=== PATIENT | male | born 1955 | race Caucasian/White ===

== ENCOUNTER 2023-10-18 07:21 | Day surgery (SDC) | payer MEDICARE, SELFPAY ==
--- NOTE | 2023-10-17 13:57 | WPDANESEPPF ---
Anes - Initial Pre Proc Eval Procedure: Operation Date: 10/18/23 09:30 Proposed Procedures p Screening Colonoscopy - Curtis Bolden MD Date/Time: 10/17/23 13:57 Surgeon: Curtis Bolden MD Pre Op Diagnosis: History of colon polyps, family hx of colon polyps Patient Data Age: 68 Gender: M Height: 1.7 m Weight: 81.7 kg Allergies Allergy/AdvReac Type Severity Reaction Status Date / Time No Known Allergies Allergy Verified 10/02/23 10:12 Home Medications Medication Instructions Recorded Confirmed Type alprazolam 0.25 mg tablet 0.25 mg PO TID PRN anxiety #90 tabs 06/20/23 10/18/23 Rx zolpidem 12.5 mg tablet,extended 12.5 mg PO QHS #90 tabs 07/04/23 10/18/23 Rx release,multiphase (Ambien CR) atorvastatin 20 mg tablet See Rx Instructions .Route 07/13/23 10/18/23 Rx .COMPLEX #90 tabs tramadol 50 mg tablet 50 mg PO Q6H PRN pain #120 tabs 09/18/23 10/18/23 Rx Nexium 1 tab-cap PO DIRECTED 10/02/23 10/18/23 History carbidopa 10 mg-levodopa 100 mg See Rx Instructions .Route 10/02/23 10/18/23 Rx tablet .COMPLEX #90 tabs Patient hx anesthesia problems: none Family hx anesthesia problems: none Results Review: All pre-operative results and documents have been reviewed as part of the pre-operative evaluation. [facility] Past Medical History Medical History (Updated 10/18/23 @ 09:27 by Lenny Weber DO) Anxiety Arthritis Dyslipidemia Impaired fasting blood sugar Insomnia Kidney donor RLS (restless legs syndrome) Surgical History Surgical History History of cholecystectomy History of splenectomy Family History Family History Mother Lung cancer Grandparent Diabetes mellitus Social History Social History Years smoked: 30 Smoking status: Current every day smoker Tobacco type: cigarettes Second hand tobacco smoke exposure: Yes Alcohol intake: current Substance use: never Substance use type: does not use Lack of Transportation: No Lack of Food: Never True Current Housing: I Have Housing Concerned About Future Housing: No Difficulty Paying Gas/Electric Bills: No Difficulty Paying for Meds: No Currently Unemployed: No Difficulty w/ Childcare or Family Care: No Living arrangements: with family Occupation/Education: retired Gender identity (if verbalized by the patient): Male Sexual Orientation (if Verbalized by the Patient): Straight or Heterosexual Anes - Eval Final PreProcedure Day of Procedure 10/17/23 13:57 Patient weight: overweight Heart: regular rate and rhythm Lungs: clear to auscultation Airway: Mallampati scale class II Neurological: alert and oriented Last oral intake: >/= 8 hours ASA classification: II Emergent: no Anesthetic plan: proceed Anesthesia type and monitoring: general GIVS and standard monitoring Results Review: All pre-operative results and documents have been reviewed as part of the pre-operative evaluation. Informed Consent: The patient's anesthetic plan and its attendant risks and benefits were discussed with the patient/family/POA. Questions were solicited and answers provided to the satisfaction of the patient/family/POA.
[2023-10-18 08:27] VITALS: BP 136/76; PULSE 82; RESP 18; TEMP 36.7; O2SAT 99; BMI 28.2
[2023-10-18] MEDS: LACTATED RINGERS 1,000 ML 150 ML IV CONT (08:37)
--- NOTE | 2023-10-18 08:40 | PM.HPGS ---
History of Present Illness History of Present Illness Consent: Risks, benefits, and alternatives have been discussed and questions answered. Patient agrees to proceed with procedure. Chief complaint: History of colon polyps, family hx of colon polyps Narrative: Aravind Sainz is a 68 year old male presents for screening colonoscopy. Patient's current weight appetite and bowel movements are normal. Patient is 15 years ago had a colonoscopy was several colon polyps. His brother has had colon polyps on multiple occasions. Patient returns today for screening colonoscopy. Review of Systems Review of Systems: All systems reviewed & are unremarkable except as noted in HPI and below PMFSH Past Medical History Medical History Anxiety Arthritis Dyslipidemia Impaired fasting blood sugar Insomnia Kidney donor RLS (restless legs syndrome) Surgical History Surgical History History of cholecystectomy History of splenectomy Family History Family History Mother Lung cancer Grandparent Diabetes mellitus Social History Social History Years smoked: 30 Smoking status: Current every day smoker Tobacco type: cigarettes Second hand tobacco smoke exposure: Yes Alcohol intake: current Substance use: never Substance use type: does not use Lack of Transportation: No Lack of Food: Never True Current Housing: I Have Housing Concerned About Future Housing: No Difficulty Paying Gas/Electric Bills: No Difficulty Paying for Meds: No Currently Unemployed: No Difficulty w/ Childcare or Family Care: No Living arrangements: with family Occupation/Education: retired Gender identity (if verbalized by the patient): Male Sexual Orientation (if Verbalized by the Patient): Straight or Heterosexual Meds Home Medications and Allergies Home Medications Medication Instructions Recorded Confirmed Type alprazolam 0.25 mg tablet 0.25 mg PO TID PRN anxiety #90 tabs 06/20/23 10/18/23 Rx zolpidem 12.5 mg tablet,extended 12.5 mg PO QHS #90 tabs 07/04/23 10/18/23 Rx release,multiphase (Ambien CR) atorvastatin 20 mg tablet See Rx Instructions .Route 07/13/23 10/18/23 Rx .COMPLEX #90 tabs tramadol 50 mg tablet 50 mg PO Q6H PRN pain #120 tabs 09/18/23 10/18/23 Rx Nexium 1 tab-cap PO DIRECTED 10/02/23 10/18/23 History carbidopa 10 mg-levodopa 100 mg See Rx Instructions .Route 10/02/23 10/18/23 Rx tablet .COMPLEX #90 tabs Allergies Allergy/AdvReac Type Severity Reaction Status Date / Time No Known Allergies Allergy Verified 10/02/23 10:12 Vital Signs Vital Signs - 24 hr 10/18/23 08:27 Temperature 98.0 F Pulse Rate 82 Respiratory Rate 18 Blood Pressure 136/76 Pulse Oximetry 99 Oxygen Delivery Room Air Exam Narrative: Physical exam reveals patient to be alert. Vital signs stable. H ENT exam is unremarkable. Patient is anicteric. Lungs are clear to auscultation and murmur or extra sounds. Abdomen bowel sounds are present soft nontender with no organomegaly. Digital external rectal exam is normal. Assessment and Plan Assessment and plan (1) History of colon polyps: Code(s): Z86.010 - Personal history of colonic polyps Status: Acute Assessment and Plan: The patient has a prior history of colon polyps. Plan for surveillance colonoscopy now and at intervals in the future. (2) Family history of colonic polyps: Code(s): Z83.719 - Family history of colon polyps, unspecified Status: Acute Assessment and Plan: Patient's brother has a history of colon polyps. Suggest patient have follow-up colonoscopy at 5 year intervals.
[2023-10-18 09:53] VITALS: BP 121/81; PULSE 86; RESP 16; O2SAT 99
[2023-10-18 10:03] VITALS: BP 124/76; PULSE 86; RESP 18; O2SAT 98
[2023-10-18 10:13] VITALS: BP 123/76; PULSE 82; RESP 18; O2SAT 99
--- NOTE | 2023-10-18 12:55 | WPDANESPN ---
Anes - Prog Note Post-Op Date/Time: 10/18/23 12:55 Cardiovascular status: normal Respiratory status: normal Airway patency: baseline Mental status: baseline Post-Op hydration status: normal Vital Signs: Last Vital Signs Temp 36.7 C 10/18/23 08:27 Pulse 82 10/18/23 10:13 Resp 18 10/18/23 10:13 BP 123/76 10/18/23 10:13 Pulse Ox 99 10/18/23 10:13 O2 Del Method Room Air 10/18/23 10:13 Pain Score (VAS): 0 I/O: Intake & Output 10/17/23 10/18/23 10/18/23 23:59 07:59 15:59 Intake Total 800 Balance 800 Post-procedural complaints: none Patient Feedback: Patient satisfied with anesthetic care. Other Findings: Patient vital signs back to baseline. Patient denies nausea and vomiting. Patient's pain under control. Patient OK for discharge.
== END 2023-10-18 10:32 | disposition home or self-care (01) ==
PROVIDERS: PCP Physician Assistant Medical; Visit Provider Internal Medicine Gastroenterology
PROC: 0DJD8ZZ Inspection of Lower Intestinal Tract, Via Natural or Artificial Opening Endoscopic (ICD-10-PCS; CPT 45378; principal; 2023-10-18 09:30)
DX: Z86.010 Personal history of colon polyps (principal); K57.30 Diverticulosis of large intestine without perforation or abscess without bleeding; K64.8 Other hemorrhoids
CPT/HCPCS: 45378

== ENCOUNTER 2025-01-28 10:54 | Outpatient (CLI) | payer MEDICARE, SELFPAY ==
[2025-01-28 11:15] LABS: Hematocrit 39.0 % (42.0-52.0); Hemoglobin 13.2 g/dL (14.0-18.0); Mean Corpuscular HGB Conc 33.8 g/dl (32-36); Mean Corpuscular Hemoglobin 31.5 pg (26-34); Mean Corpuscular Volume 93.1 fl (80-100); Platelet Count Result 426 k/mm3 (150-375); Red Blood Count 4.19 M/mm3 (4.6-6.20); White Blood Count 9.0 K/mm3 (4.5-10.0)
[2025-01-28 11:38] LABS: Iron 77 ug/dL (49-181)
[2025-01-28 11:48] LABS: Percent Iron Saturation 23 % (20-50)
[2025-01-28 12:19] LABS: Ferritin 28.10 ng/mL (11.1-264)
--- OUTSIDE RECORDS SUMMARY | 2025-01-28 12:46 | XMS_ITS | Clinical Summary ---
Author Organization [facility] Address [address] [place] [address] Care Team Providers Care Fitting Room Supervisor Name Role Phone Unavailable Primary Care Provider Unavailabl e Social History Tobacco Use Types Packs/Day Years Used Date Smoking Tobacco: Never Assessed Sex and Gender Information Value Date Recorded Sex Assigned at Not on file Legal Sex Male 7:51 AM CDT Gender Identity Not on file Sexual Orientation Not on file Plan of Treatment Health Maintenance Due Date Last Done Comments Colorectal Cancer Screening Colonoscopy (10 Years) 1955 Hepatitis C 1973 DTaP, Tdap and Td Vaccines ( 1 - Tdap) 1974 Pneumococcal Vaccine: 50+ Ye ars (1 of 1 - PCV) 2005 Zoster Vaccines (1 of 2) 2005 COVID-19 Vaccine (1 - 2023-2 5 season) 2025 RSV Immunization or 60+ Years (1 - 1-dose 75+ series) 2030 Meningococcal B Vaccine Aged Out No l onger eligible based on patient's age to complete this topic Meningococcal Vaccine Aged Out No connor dinorah eligible based on patient's age to complete this topic RSV Immunizations Under 20 Months Aged Out No longer eligible based on patient's age to complete this topic
== END 2025-01-28 10:55 | disposition home or self-care (01) ==
PROVIDERS: PCP Physician Assistant Medical; Visit Provider Nurse Practitioner
DX: D64.9 Anemia, unspecified (principal)
CPT/HCPCS: 36415; 82728; 83540; 83550; 85027

== ENCOUNTER 2025-03-06 00:20 | Day surgery (SDC) | payer MEDICARE, SELFPAY ==
[2025-02-26 10:58] VITALS: BMI 26.7
--- OUTSIDE RECORDS SUMMARY | 2025-03-06 00:23 | XMS_ITS | Clinical Summary ---
Author Organization [facility] Address [address] [place] [address] Care Team Providers Care Cook Vegetable Name Role Phone Unavailable Primary Care Provider [...] Vaccines (1 of 2) 2005 COVID-19 Vaccine ( - 2023-2 5 season) 2025 Influenza Adult (#1) 2025 RSV Immunization or 60+ Years (1 [...]
[2025-03-06 13:03] VITALS: BP 151/84; PULSE 116; RESP 16; TEMP 36.4; O2SAT 100
[2025-03-06] MEDS: LACTATED RINGERS 1,000 ML 150 ML IV CONT (13:10)
--- NOTE | 2025-03-06 13:34 | WPDANESEPPF ---
Anes - Initial Pre Proc Eval Procedure: Operation Date: 03/06/25 14:30 Proposed Procedures p EGD & Diagnostic Colonoscopy - Rocco Suarez MD Date/Time: 03/06/25 13:34 Surgeon: Rocco Suarez MD Pre Op Diagnosis: GERD, anemia, other fecal abnormalities Patient Data Age: 69 Gender: M Height: 1.7 m Weight: 78.5 kg Last Vital Signs Temp 97.6 F 03/06/25 13:03 Pulse 116 H 03/06/25 13:03 Resp 16 03/06/25 13:03 BP 151/84 H 03/06/25 13:03 Pulse Ox 100 03/06/25 13:03 O2 Del Method Room Air 03/06/25 13:03 Allergies Allergy/AdvReac Type Severity Reaction Status Date / Time No Known Allergies Allergy Verified 03/06/25 13:02 Home Medications ?Medication ?Instructions ?Recorded ?Confirmed ?Type Nexium 1 tab-cap PO DIRECTED 10/02/23 03/06/25 History carbidopa 10 mg-levodopa 100 mg 2 tablet PO QHS #180 tabs 07/05/24 03/06/25 Rx tablet atorvastatin 20 mg tablet 20 mg PO QHS #90 tabs 09/02/24 03/06/25 Rx zolpidem 12.5 mg tablet,extended 12.5 mg PO QHS #90 tabs 01/03/25 03/06/25 Rx release,multiphase (Ambien CR) alprazolam 0.25 mg tablet 0.25 mg PO TID PRN anxiety #90 tabs 01/27/25 02/26/25 Rx ferrous sulfate 325 mg (65 mg 325 mg PO DAILY #30 tabs 01/28/25 02/26/25 Rx iron) tablet hydrocortisone 2.5 % topical cream 1 applic RECTAL BID #30 grams 01/28/25 03/06/25 Rx with perineal applicator (Procto-Med HC) tramadol 50 mg tablet 50 mg PO Q6H PRN pain #120 tabs 01/30/25 02/26/25 Rx diclofenac 75 mg-misoprostol 200 1 tablet PO BID PRN pain 02/26/25 02/26/25 History mcg tablet,immediate,delayed release (Arthrotec) Patient hx anesthesia problems: none Family hx anesthesia problems: none Results Review: All pre-operative results and documents have been reviewed as part of the pre-operative evaluation. [facility] Past Medical History Medical History Family history of colonic polyps History of colon polyps Kidney donor RLS (restless legs syndrome) Dyslipidemia Impaired fasting blood sugar Anxiety Insomnia Arthritis Surgical History Surgical History History of splenectomy History of cholecystectomy Family History Family History Mother Lung cancer Grandparent Diabetes mellitus Social History Social History Social History: 12/31/24 patient declined SDOH Years smoked: 35 Smoking status: Former smoker Tobacco type: cigarettes Second hand tobacco smoke exposure: Yes Alcohol intake: never Substance use: never Substance use type: does not use Do You Feel Safe in your Home?: Yes Lack of Transportation: No Lack of Food: Never True Current Housing: I Have Housing Concerned About Future Housing: No Difficulty Paying Gas/Electric Bills: No Difficulty Paying for Meds: No Currently Unemployed: No Education: Master's Degree or Higher Difficulty w/ Childcare or Family Care: No Living arrangements: with family Occupation/Education: retired Gender identity (if verbalized by the patient): Male Sexual Orientation (if Verbalized by the Patient): Straight or Heterosexual Spiritual care concerns: No Anes - Eval Final PreProcedure Day of Procedure 03/06/25 13:34 Patient weight: normal Heart: regular rate and rhythm Lungs: clear to auscultation Airway: Mallampati scale class II Neurological: alert and oriented Last oral intake: >/= 8 hours ASA classification: III Emergent: no Anesthetic plan: proceed Anesthesia type and monitoring: general GIVS and standard monitoring Results Review: All pre-operative results and documents have been reviewed as part of the pre-operative evaluation. Informed Consent: The patient's anesthetic plan and its attendant risks and benefits were discussed with the patient/family/POA. Questions were solicited and answers provided to the satisfaction of the patient/family/POA.
--- NOTE | 2025-03-06 13:58 | PM.HPGS ---
History of Present Illness History of Present Illness Consent: Risks, benefits, and alternatives have been discussed and questions answered. Patient agrees to proceed with procedure. Chief complaint: GERD, anemia, other fecal abnormalities Narrative: Aravind Sainz is a 69 year old male with mild anemia, denies overt gib, last colonoscopy 2023 Review of Systems Review of Systems: All systems reviewed & are unremarkable except as noted in HPI and below PMFSH Past Medical History Medical History Family history of colonic polyps History of colon polyps Kidney donor RLS (restless legs syndrome) Dyslipidemia Impaired fasting blood sugar Anxiety Insomnia Arthritis Surgical History Surgical History History of splenectomy History of cholecystectomy Family History Family History Mother Lung cancer Grandparent Diabetes mellitus Social History Social History Social History: 12/31/24 patient declined SDOH Years smoked: 35 Smoking status: Former smoker Tobacco type: cigarettes Second hand tobacco smoke exposure: Yes Alcohol intake: never Substance use: never Substance use type: does not use Do You Feel Safe in your Home?: Yes Lack of Transportation: No Lack of Food: Never True Current Housing: I Have Housing Concerned About Future Housing: No Difficulty Paying Gas/Electric Bills: No Difficulty Paying for Meds: No Currently Unemployed: No Education: Master's Degree or Higher Difficulty w/ Childcare or Family Care: No Living arrangements: with family Occupation/Education: retired Gender identity (if verbalized by the patient): Male Sexual Orientation (if Verbalized by the Patient): Straight or Heterosexual Spiritual care concerns: No Meds Home Medications and Allergies Home Medications ?Medication ?Instructions ?Recorded ?Confirmed ?Type Nexium 1 tab-cap PO DIRECTED 10/02/23 03/06/25 History carbidopa 10 mg-levodopa 100 mg 2 tablet PO QHS #180 tabs 07/05/24 03/06/25 Rx tablet atorvastatin 20 mg tablet 20 mg PO QHS #90 tabs 09/02/24 03/06/25 Rx zolpidem 12.5 mg tablet,extended 12.5 mg PO QHS #90 tabs 01/03/25 03/06/25 Rx release,multiphase (Ambien CR) alprazolam 0.25 mg tablet 0.25 mg PO TID PRN anxiety #90 tabs 01/27/25 02/26/25 Rx ferrous sulfate 325 mg (65 mg 325 mg PO DAILY #30 tabs 01/28/25 02/26/25 Rx iron) tablet hydrocortisone 2.5 % topical cream 1 applic RECTAL BID #30 grams 01/28/25 03/06/25 Rx with perineal applicator (Procto-Med HC) tramadol 50 mg tablet 50 mg PO Q6H PRN pain #120 tabs 01/30/25 02/26/25 Rx diclofenac 75 mg-misoprostol 200 1 tablet PO BID PRN pain 02/26/25 02/26/25 History mcg tablet,immediate,delayed release (Arthrotec) Allergies Allergy/AdvReac Type Severity Reaction Status Date / Time No Known Allergies Allergy Verified 03/06/25 13:02 Vital Signs Vital Signs - 24 hr 03/06/25 13:03 Temperature 97.6 F Pulse Rate 116 H Respiratory Rate 16 Blood Pressure 151/84 H Pulse Oximetry 100 Oxygen Delivery Room Air Exam Const: General: comfortable and no acute distress HENMT: Face/Nose/Sinus: Normal nares present Eyes: General: appearance normal, both eyes and all related structures Neck: Neck: no JVD Resp: Auscultation: clear to auscultation bilaterally Cardio: Rate: regular rate Rhythm: regular rhythm GI: Inspection: non-distended GI Palp: Yes Soft to palpation Skin: General skin exam: normal color Neuro: General: gait normal Speech: normal speech Extrem: General: normal to inspection Psych: Mental Status: mental status grossly normal Assessment and Plan Assessment and plan (1) Normocytic anemia: Code(s): D64.9 - Anemia, unspecified Status: Acute Assessment and Plan: egd
--- NOTE | 2025-03-06 14:04 | SUR.OPER ---
EGD [id number]. Colonoscopy start time 1406.
--- NOTE | 2025-03-06 14:15 | S_PTH ---
PATIENT: Aravind Sainz LOC: [facility]#:[id number] AGE/SX: 69/M ROOM: RE03/06/[address]: Rocco Suarez MD : 1955 BED: DIS: 03/06/2025 SPEC #: [id number] RECD: 03/06/25 14:35 STATUS: NORBERT RE #: [id number] GISEL: 03/06/25 14:[address]: Rocco Suarez DEPT: [facility] Surgical RECD BY: Daniella Partida ENTERED: 03/06/25 14:36 SP TYPE: Surgical OTHR DR: Nury Guzmán PA-C Tissues: A - Colon Polypectomy B - Small Bowel Bx C - Gastric Biopsy Procedures: Hematoxylin and Eosin Stain Gross and Microscopic Level 4
[2025-03-06 14:17] VITALS: BP 114/67; PULSE 89; RESP 19; O2SAT 95
[2025-03-06 14:27] VITALS: BP 127/78; PULSE 80; RESP 17; O2SAT 98
[2025-03-06 14:37] VITALS: BP 136/84; PULSE 90; RESP 23; O2SAT 99
== END 2025-03-06 14:46 | disposition home or self-care (01) ==
PROVIDERS: PCP Physician Assistant Medical; Referring Provider Nurse Practitioner; Visit Provider Internal Medicine Gastroenterology
PROC: 0DJ08ZZ Inspection of Upper Intestinal Tract, Via Natural or Artificial Opening Endoscopic (ICD-10-PCS; CPT 45378; principal; 2025-03-06 14:30)
DX: D64.9 Anemia, unspecified (principal); D12.2 Benign neoplasm of ascending colon; K64.8 Other hemorrhoids; K57.30 Diverticulosis of large intestine without perforation or abscess without bleeding; K44.9 Diaphragmatic hernia without obstruction or gangrene; E78.5 Hyperlipidemia, unspecified; F41.9 Anxiety disorder, unspecified; G25.81 Restless legs syndrome; G47.00 Insomnia, unspecified; M19.90 Unspecified osteoarthritis, unspecified site; Z79.891 Long term (current) use of opiate analgesic; Z90.49 Acquired absence of other specified parts of digestive tract; Z90.81 Acquired absence of spleen; Z87.891 Personal history of nicotine dependence; Z83.719 Family history of colon polyps, unspecified; Z80.1 Family history of malignant neoplasm of trachea, bronchus and lung
CPT/HCPCS: 43239; 45385; 88305; J2704; J7120